=== PATIENT | male | born 1950 | race Two or more races ===

== ENCOUNTER 2021-06-18 10:48 | Outpatient (CLI) | payer OTHER | END 2021-06-18 16:38 | disposition home or self-care (01) | LOC: ASH CLINIC 10:48 | PROVIDERS: ATTEND Internal Medicine Pulmonary Disease | DX: Z23 Encounter for immunization (principal); U07.1 COVID-19 ==

== ENCOUNTER 2024-03-10 11:45 | Emergency (ER) | payer OTHER ==
[~2024-03-10] VITALS: Ht 162.6 cm; Wt 79.4 kg
[2024-03-10] MEDS ORDERED: AVAPRO75 MG (12:06)
[2024-03-10] MEDS ORDERED: NORVASC2.5 M1 (12:06)
[2024-03-10] MEDS ORDERED: GLIMEPIRIDE1 MG (12:07)
[2024-03-10] MEDS ORDERED: METFORMIN HCL1000 M3 (12:07)
[2024-03-10 13:40] LABS: HEMATOCRIT 39.4 % (39.0-48.0); HEMOGLOBIN 13.4 g/dL (13-16.00); MEAN CELL VOLUME 87.6 fL (80.0-100.00); MEAN CORPUSCULAR HEMOGLOBIN 29.8 pg (27.00-32.0); MEAN CORPUSCULAR HGB CONC 34.1 g/dl (32.0-36.0); PLATELET COUNT 285 K/uL (150-450); RED BLOOD COUNT 4.49 M/uL (4.00-6.00); RED CELL DISTRIBUTION WIDTH 14.1 % (11.5-14.5)
[2024-03-10 14:04] LABS: ALBUMIN 4.1 gm/dL (3.4-5.0); BILIRUBIN TOTAL 0.33 mg/dL (0.3-1.2); CALCIUM 9.5 mg/dL (8.5-10.1); CREATININE SERUM 0.72 mg/dL (0.70-1.30); GFR 107.31; GLOBULINA 3.6 G/DL (2.4-3.5); POTASSIUM 4.53 mEq/L (3.5-5.1); TOTAL PROTEIN 7.7 gm/dL (6.4-8.2)
[2024-03-10 14:22] LABS: URINE APPEARANCE Clear; URINE BILIRRUBIN Negative (NEGATIVE); URINE BLOOD Negative; URINE COLOR Yellow; URINE LEUKOCYTE Negative; URINE NITRATE Negative; URINE PROTEIN Negative (NEGATIVE); URINE UROBILINOGEN 0.2 E.U./dl
[2024-03-10 14:27] LABS: URINE BACTERIA 12.5 uL (0.0-1933); URINE EPITHELIAL CELLS 6.5 uL (0.0-38.8); URINE RBC 4.8 uL (0.0-20.8); URINE WBC 3.9 uL (0.0-23.2)
[2024-03-10 14:36] LABS: URINE GLUCOSE >=1000 MG/DL (NEGATIVE)
== END 2024-03-10 15:45 | disposition home or self-care (01) ==
LOC: ER 11:45
PROVIDERS: General Practice
DX: R07.89 Other chest pain (principal); M94.0 Chondrocostal junction syndrome [Tietze]; I20.89 Other forms of angina pectoris; E11.9 Type 2 diabetes mellitus without complications; Z79.84 Long term (current) use of oral hypoglycemic drugs